=== PATIENT | male | born 1965 | race Caucasian/White ===

== ENCOUNTER 2019-07-26 06:26 | Inpatient (IN) ==
[2019-07-26] MEDS ORDERED: CeFAZolin Syr 3,000MG/30 ML 3,000 MG/30 ML SYRINGE IVPB ONE (06:51)
[2019-07-26] MEDS ORDERED: *HR* OxyCODONE Immed Rel 5 MG TABLET PO PRN (06:58)
[2019-07-26] MEDS ORDERED: *HR* HYDROmorphone PF 0.5 MG/0.5 ML SYRINGE IVP PRN (06:58)
[2019-07-26] MEDS ORDERED: Ondansetron 4 MG/2 ML VIAL IVP ONE (06:58)
[2019-07-26] MEDS ORDERED: *HR* Promethazine 25 MG/ML VIAL IVP PRN (06:58)
[2019-07-26] MEDS ORDERED: Ringers Solution, Lactated 1,000 ML IVC SCH ×2 (07:00→10:46)
[2019-07-26] MEDS ORDERED: *HR* Midazolam HCl 2 MG/2 ML VIAL ONE (07:13)
[2019-07-26] MEDS ORDERED: *HR* FentaNYL (PF) 100 MCG/2 ML VIAL ONE ×2 (07:13→07:20)
[2019-07-26] MEDS ORDERED: *HR* Propofol 200 MG/20 ML VIAL IVP ONE (07:13)
[2019-07-26] MEDS ORDERED: Lidocaine -MPF 2% 2 ML VIAL ONE (07:14)
[2019-07-26] MEDS ORDERED: *HR* Succinylcholine 200 MG/10 ML VIAL IVP ONE (07:14)
[2019-07-26] MEDS ORDERED: Dexamethasone 4 MG/ML VIAL ONE ×2 (07:14→07:34)
[2019-07-26] MEDS ORDERED: Ondansetron 4 MG/2 ML VIAL ONE (07:14)
[2019-07-26] MEDS ORDERED: Ethanol\\Acetic Acid\\Na Ace\\Ben 1,000 ML IRRIG.SOLN IR ONE (07:25)
[2019-07-26] MEDS ORDERED: Ropivacaine/PF 0.5% 30 ML VIAL ONE ×2 (07:28→07:35)
[2019-07-26] MEDS ORDERED: ROPIVACAINE/PF/NS 0.25% 1 EACH SYRINGE INTRAART ONE ×2 (07:28→07:35)
[2019-07-26] MEDS ORDERED: Acetaminophen IV 1,000 MG/100 ML INFUS..BTL ONE (07:35)
[2019-07-26] MEDS ORDERED: Naloxone 0.4 MG/ML INJ ONE (07:56)
[2019-07-26] MEDS ORDERED: flumazeniL 0.5 MG/5 ML VIAL IVP ONE (07:56)
[2019-07-26] MEDS ORDERED: *HR* PHENYLEPHRINE 1,000 MCG/10 ML SYRINGE IVP ONE ×2 (08:11→08:49)
[2019-07-26 10:42] LABS: Hematocrit 37.1 % (37.5-50.1); Hemoglobin 11.9 g/dL (12.9-16.9)
[2019-07-26] MEDS ORDERED: D5% in Water 1,000 ML IVC PRN (10:46)
[2019-07-26] MEDS ORDERED: diazePAM 5 MG TABLET PO SCH (10:46)
[2019-07-26] MEDS ORDERED: Sennosides 8.6 MG TABLET PO PRN (10:46)
[2019-07-26] MEDS ORDERED: Naloxone 0.4 MG/ML INJ IVP PRN (10:46)
[2019-07-26] MEDS ORDERED: MOM Conc 10 ML UD.LIQ PO PRN (10:46)
[2019-07-26] MEDS ORDERED: (Dapagliflozin Propanediol [Farxiga] 10 MG) PO SCH (10:46)
[2019-07-26] MEDS ORDERED: Dextrose Gel 15 GM/37.5 ML TUBE PO PRN ×2 (10:46)
[2019-07-26] MEDS ORDERED: *HR* Dextrose 50 % in Water (Syg) 50 ML SYRINGE IVP PRN (10:46)
[2019-07-26] MEDS ORDERED: Ondansetron 4 MG/2 ML VIAL IVP PRN (10:46)
[2019-07-26] MEDS: Furosemide 40 MG TABLET PO SCH (13:04)
[2019-07-26] MEDS: hydroCHLOROthiazide 25 MG TABLET PO SCH (13:04)
[2019-07-26] MEDS: Insulin DETEMIR 100 UNIT/ML X5UNITS SQ SCH ×2 (13:13→21:52)
[2019-07-26] MEDS: *HR* Metformin 500 MG TABLET PO SCH ×2 (13:16→18:35)
[2019-07-26] MEDS: methocarbamoL 750 MG TABLET PO SCH ×4 (13:19→21:50)
[2019-07-26] MEDS: Insulin LISPRO 300 UNITS/3 ML VIAL SQ SCH ×2 (13:21→17:20)
[2019-07-26] MEDS: ceFAZolin 3,000 MG in 0.9 % Sodium Chloride 100 ML IVPB SCH (15:33)
[2019-07-26] MEDS: Gabapentin 300 MG CAPSULE PO SCH ×2 (15:34→21:51)
[2019-07-26] MEDS: *HR* OxyCODONE/APAP 5/325 TABLET PO PRN (16:14)
[2019-07-26] MEDS: diazePAM 5 MG TABLET PO SCH ×2 (16:28→21:50)
[2019-07-26] MEDS: *HR* Rivaroxaban 10 MG TABLET PO SCH (18:32)
[2019-07-26] MEDS ORDERED: Insulin LISPRO 300 UNITS/3 ML VIAL SQ SCH (21:00)
[2019-07-26] MEDS: *HR* OxyCODONE Immed Rel 5 MG TABLET PO PRN (21:50)
[2019-07-27] MEDS: ceFAZolin 3,000 MG in 0.9 % Sodium Chloride 100 ML IVPB SCH (00:12)
[2019-07-27] MEDS: *HR* OxyCODONE Immed Rel 5 MG TABLET PO PRN ×4 (04:50→23:02)
[2019-07-27] MEDS: *HR* OxyCODONE/APAP 5/325 TABLET PO PRN (05:07)
[2019-07-27 06:33] LABS: Hematocrit 34.6 % (37.5-50.1); Hemoglobin 11.1 g/dL (12.9-16.9)
[2019-07-27] MEDS: methocarbamoL 750 MG TABLET PO SCH ×6 (06:36→23:02)
[2019-07-27 06:53] LABS: BUN/Creatinine Ratio 31 (6-26); Blood Urea Nitrogen 33 mg/dL (6-20); Carbon Dioxide 31 mEq/L (23-29); Chloride 94 mEq/L (98-107); Glucose 251 mg/dL (70-105); Osmolality,Calculated 294 (280-300); Potassium 3.8 mEq/L (3.5-5.1); Sodium 134 mEq/L (136-145); eGFR For African Americans > 60 (> 60); eGFR For Non-African Americans > 60 (> 60)
[2019-07-27] MEDS ORDERED: *HR* OxyCODONE Immed Rel 5 MG TABLET PO PRN (08:00)
[2019-07-27] MEDS: Gabapentin 300 MG CAPSULE PO SCH ×3 (08:18→20:58)
[2019-07-27] MEDS: diazePAM 5 MG TABLET PO SCH ×2 (08:18→20:59)
[2019-07-27] MEDS: Furosemide 40 MG TABLET PO SCH (08:18)
[2019-07-27] MEDS: *HR* Metformin 500 MG TABLET PO SCH (08:18)
[2019-07-27] MEDS: hydroCHLOROthiazide 25 MG TABLET PO SCH (08:18)
[2019-07-27] MEDS: Insulin LISPRO 300 UNITS/3 ML VIAL SQ SCH ×3 (08:19→17:43)
[2019-07-27] MEDS: Insulin DETEMIR 100 UNIT/ML X5UNITS SQ SCH ×2 (08:28→20:58)
[2019-07-27 10:21] LABS: Basophils % 0.2 %; Eosinophils # 0.1 K/mcL (0.0-0.6); Eosinophils % 0.5 %; Hematocrit 35.6 % (37.5-50.1); Hemoglobin 11.4 g/dL (12.9-16.9); Immature Granulocytes % 0.5 % (0-4); Lymphocytes # 1.4 K/mcL (0.6-4.6); Lymphocytes % 11.9 %; Mean Corpuscular Hemoglobin 30.6 pg (28.0-33.3); Mean Corpuscular Volume 95.7 fL (83.0-100.0); Monocytes # 1.2 K/mcL (0.0-1.3); Monocytes % 10.2 %; Neutrophils # 9.3 K/mcL (1.6-8.9); Platelet Count 230 K/mcL (140-400); Red Blood Count 3.72 M/mcL (4.19-5.50); Red Cell Distribution Width 14.1 % (11.5-14.5); Segmented Neutrophils % 76.7 %; White Blood Count 12.1 K/mcL (4.3-11.1)
[2019-07-27] MEDS ORDERED: Isovue-370 500 ML BOTTLE IVP ONE (10:49)
[2019-07-27] MEDS: Furosemide 40 MG/4 ML VIAL IVP SCH (17:39)
[2019-07-27] MEDS: *HR* Rivaroxaban 10 MG TABLET PO SCH (17:40)
[2019-07-27] MEDS ORDERED: Insulin LISPRO 300 UNITS/3 ML VIAL SQ SCH (21:00)
[2019-07-28] MEDS: methocarbamoL 750 MG TABLET PO SCH ×5 (02:30→14:12)
[2019-07-28 03:05] LABS: Hematocrit 33.4 % (37.5-50.1); Hemoglobin 11.1 g/dL (12.9-16.9)
[2019-07-28] MEDS: *HR* OxyCODONE Immed Rel 5 MG TABLET PO PRN ×2 (03:09→06:58)
[2019-07-28 03:25] LABS: BUN/Creatinine Ratio 31 (6-26); Blood Urea Nitrogen 36 mg/dL (6-20); Carbon Dioxide 34 mEq/L (23-29); Chloride 92 mEq/L (98-107); Glucose 168 mg/dL (70-105); Osmolality,Calculated 292 (280-300); Potassium 3.4 mEq/L (3.5-5.1); Sodium 135 mEq/L (136-145); eGFR For African Americans > 60 (> 60); eGFR For Non-African Americans > 60 (> 60)
[2019-07-28] MEDS: Insulin LISPRO 300 UNITS/3 ML VIAL SQ SCH ×2 (08:49→12:10)
[2019-07-28] MEDS: diazePAM 5 MG TABLET PO SCH (08:50)
[2019-07-28] MEDS: hydroCHLOROthiazide 25 MG TABLET PO SCH (08:50)
[2019-07-28] MEDS: Gabapentin 300 MG CAPSULE PO SCH ×2 (08:50→14:05)
[2019-07-28] MEDS: Furosemide 40 MG/4 ML VIAL IVP SCH (08:50)
[2019-07-28] MEDS: Insulin DETEMIR 100 UNIT/ML X5UNITS SQ SCH (09:21)
[2019-07-28 12:00] VITALS: BP 115/81
[2019-07-28] MEDS ORDERED: Perflutren Lipid Microsphere 1.3 ML in 0.9 % Sodium Chloride 8.7 ML IVP ONE (12:51)
[2019-07-28] MEDS ORDERED: methocarbamoL 750 MG TABLET PO SCH (21:00)
[2019-07-31] MEDS ORDERED: (Dulaglutide [Trulicity] 0.75 MG) SQ SCH (08:04)
== END 2019-07-28 17:20 | disposition home health service (06) | DRG 483 ==
LOC: SAMDAY 06:26 → 3NENU 10:44 → SUATTDRO 10:44
PROVIDERS: ADMIT Orthopaedic Surgery; ATTEND Student in an Organized Health Care Education/Training Program

== ENCOUNTER 2020-06-02 18:12 | Inpatient (IN) ==
[2020-06-02] MEDS ORDERED: Isovue-370 500 ML BOTTLE IVP ONE (18:30)
[2020-06-02 18:55] LABS: Basophils % 0.3 %; Hematocrit 43.4 % (37.5-50.1); Hemoglobin 13.9 g/dL (12.9-16.9); Immature Granulocytes % 0.5 % (0-4); Lymphocytes # 1.3 K/mcL (0.6-4.6); Lymphocytes % 19.4 %; Mean Corpuscular Hemoglobin 30.5 pg (28.0-33.3); Mean Corpuscular Volume 95.2 fL (83.0-100.0); Mean Platelet Volume 10.9 fL (9.4-12.4); Monocytes # 0.7 K/mcL (0.0-1.3); Monocytes % 10.4 %; Neutrophils # 4.6 K/mcL (1.6-8.9); Platelet Count 232 K/mcL (140-400); Red Blood Count 4.56 M/mcL (4.19-5.50); Red Cell Distribution Width 14.2 % (11.5-14.5); Segmented Neutrophils % 69.4 %; White Blood Count 6.7 K/mcL (4.3-11.1)
[2020-06-02 19:07] LABS: INR 2.6; Prothrombin Time 28.9 Seconds (9.4-12.1)
[2020-06-02 19:16] LABS: Alanine Aminotransferase 16 Units/L (7-52); Albumin 3.7 g/dL (3.5-5.7); Albumin/Globulin Ratio 1.1 (1.1-2.2); Alkaline Phosphatase 53 Units/L (34-104); Aspartate Amino Transferase 21 Units/L (13-39); BUN/Creatinine Ratio 24 (6-26); Bilirubin,Direct 0.1 mg/dL (0.0-0.2); Bilirubin,Indirect 0.4 mg/dL (0.0-1.0); Bilirubin,Total 0.5 mg/dL (0.3-1.0); Blood Urea Nitrogen 33 mg/dL (6-20); C-Reactive Protein 85 mg/L (Less than 10); Calcium 8.7 mg/dL (8.6-10.3); Carbon Dioxide 28 mEq/L (23-29); Chloride 93 mEq/L (98-107); Globulin 3.5 g/dL (2.4-3.5); Glucose 265 mg/dL (70-105); Lactate Dehydrogenase 190 Units/L (140-271); Magnesium 1.6 mg/dL (1.6-2.6); Osmolality,Calculated 297 (280-300); Phosphorous 2.8 mg/dL (2.7-4.5); Potassium 3.6 mEq/L (3.5-5.1); Sodium 135 mEq/L (136-145); Total Protein 7.2 g/dL (6.4-8.9); Troponin I < 0.03 ng/mL (< 0.04); eGFR For African Americans > 60 (> 60); eGFR For Non-African Americans 55 (> 60)
[2020-06-02 19:34] LABS: Ferritin 121 ng/mL (20-250)
[2020-06-02] MEDS ORDERED: Naloxone 0.4 MG/ML INJ IVP PRN (21:46)
[2020-06-02] MEDS ORDERED: Ondansetron 4 MG/2 ML VIAL IVP PRN (21:47)
[2020-06-02] MEDS ORDERED: Acetaminophen 325 MG TABLET PO PRN (21:47)
[2020-06-02] MEDS ORDERED: *HR* Dextrose 50 % in Water (Vial) 50 ML VIAL IVP PRN (22:42)
[2020-06-02] MEDS ORDERED: D5% in Water 1,000 ML IVC PRN (22:42)
[2020-06-02] MEDS ORDERED: Dextrose Gel 15 GM/37.5 ML TUBE PO PRN ×2 (22:42)
[2020-06-02] MEDS ORDERED: 0.9 % Sodium Chloride 250 ML IVC ONE (23:42)
[2020-06-03] MEDS: Insulin DETEMIR 100 UNIT/ML X5UNITS SUBQ SCH ×2 (00:47→19:48)
[2020-06-03 00:51] LABS: Hematocrit 41.8 % (37.5-50.1); Mean Corpuscular HGB Conc 31.1 g/dL (31.6-35.5); Mean Corpuscular Volume 96.3 fL (83.0-100.0); Mean Platelet Volume 11.7 fL (9.4-12.4); Platelet Count 239 K/mcL (140-400); Red Blood Count 4.34 M/mcL (4.19-5.50); Red Cell Distribution Width 14.3 % (11.5-14.5); White Blood Count 6.6 K/mcL (4.3-11.1)
[2020-06-03 00:57] LABS: Fibrinogen 468 mg/dL (169-393)
[2020-06-03] MEDS: Insulin LISPRO 300 UNITS/3 ML VIAL SUBQ SCH ×4 (00:59→18:26)
[2020-06-03 01:04] LABS: D-Dimer 289 ng/mLFEU (0-500)
[2020-06-03 01:32] LABS: BUN/Creatinine Ratio 28 (6-26); Blood Urea Nitrogen 34 mg/dL (6-20); C-Reactive Protein 84 mg/L (Less than 10); Calcium 8.6 mg/dL (8.6-10.3); Carbon Dioxide 28 mEq/L (23-29); Chloride 94 mEq/L (98-107); Creatine Kinase 75 Units/L (30-223); Ferritin 132 ng/mL (20-250); Glucose 222 mg/dL (70-105); Lactate Dehydrogenase 222 Units/L (140-271); Osmolality,Calculated 290 (280-300); Potassium 4.1 mEq/L (3.5-5.1); Sodium 133 mEq/L (136-145); eGFR For African Americans > 60 (> 60); eGFR For Non-African Americans > 60 (> 60)
[2020-06-03] MEDS ORDERED: *HR* LORazepam 1 MG TABLET PO ONE (03:14)
[2020-06-03] MEDS ORDERED: *HR* LORazepam 2 MG/ML VIAL IVP ONE (10:49)
[2020-06-03 15:10] LABS: Alanine Aminotransferase 13 Units/L (7-52); Albumin 3.6 g/dL (3.5-5.7); Albumin/Globulin Ratio 1.1 (1.1-2.2); Alkaline Phosphatase 47 Units/L (34-104); Aspartate Amino Transferase 23 Units/L (13-39); Bilirubin,Indirect 0.4 mg/dL (0.0-1.0); Bilirubin,Total 0.4 mg/dL (0.3-1.0); Globulin 3.2 g/dL (2.4-3.5); Total Protein 6.8 g/dL (6.4-8.9)
[2020-06-03] MEDS ORDERED: Dexamethasone Sodium Phos/PF 10 MG/ML VIAL IVP SCH (15:45)
[2020-06-03] MEDS ORDERED: Remdesivir 200 MG in 0.9 % Sodium Chloride 100 ML IVPB ONE (17:00)
[2020-06-03 19:44] VITALS: BP 159/96
[2020-06-03] MEDS ORDERED: Gabapentin 300 MG CAPSULE PO SCH (21:00)
[2020-06-03] MEDS ORDERED: *HR* Rivaroxaban 10 MG TABLET PO SCH (21:00)
[2020-06-03] MEDS ORDERED: Melatonin 3 MG TABLET PO SCH (21:00)
[2020-06-04] MEDS ORDERED: Insulin DETEMIR 100 UNIT/ML X5UNITS SUBQ SCH (09:00)
[2020-06-04] MEDS ORDERED: Remdesivir 100 MG in 0.9 % Sodium Chloride 100 ML IVPB SCH (17:00)
== END 2020-06-03 21:10 | disposition left against medical advice (07) | DRG 137 ==
LOC: 2NENU 18:12 → EMEROOARM 18:12 → SUATTDRO 21:38 → 2NENU 22:59
PROVIDERS: ADMIT Student in an Organized Health Care Education/Training Program; ATTEND Student in an Organized Health Care Education/Training Program